=== PATIENT | male | born 1975 | race Caucasian/White ===

== ENCOUNTER 2017-03-26 04:47 | Emergency (ER) | payer OTHER ==
[~2017-03-26] VITALS: Ht 175.3 cm; Wt 73.5 kg
[2017-03-26] MEDS ORDERED: BISO5TAB5 PO (05:09)
[2017-03-26] MEDS ORDERED: ESCI10TA2 PO (05:09)
[2017-03-26] MEDS ORDERED: FENT10PA TD (05:09)
[2017-03-26] MEDS ORDERED: XANA0.5T PO (05:09)
[2017-03-26] MEDS ORDERED: PERCOCET 5MG/325MG TAB PO ONE (15:45)
[2017-03-26] MEDS ORDERED: fentaNYL 75 MCG/HR PATCH TOP ONE (20:15)
[2017-03-26] MEDS ORDERED: FENTANYL REMOVAL DOCUMENTATION MISC XX SCH (20:15)
[2017-03-27 03:26] VITALS: BP 129/95
== END 2017-03-27 03:30 ==
LOC: EDBD 04:47 → M ED 06:21
DX: F29 Unspecified psychosis not due to a substance or known physiological condition (principal); Z79.899 Other long term (current) drug therapy; Z88.6 Allergy status to analgesic agent